=== PATIENT | female | born 2000 | race African-American/Black ===

== ENCOUNTER 2025-07-17 02:34 | Emergency (ER) | payer SELFPAY ==
[2025-07-17 03:00] LABS: Glucose, Urine (Dipstick) Normal (Negative); Leukocyte 100 (Negative); Protein, Urine (Dipstick) Negative (Neg-Trace); Specific Gravity, Urine 1.025 (1.005-1.030)
[2025-07-17 03:06] LABS: Pregnancy Test - Urine (BHCG) Negative (Negative); Pregu Control Background? CLEAR/WHITE (CLR/WHITE); Pregu Control Bar Appear? YES (CONTROL BAR)
[2025-07-17] MEDS ORDERED: Ketorolac Tromethamine 30 MG (1 mL) VIAL ONE (03:13)
[2025-07-17 03:38] LABS: Bacteria/HPF Rare-Few HPF (None Seen); CAUTI Indications for Culture Pelvic or flank pain; RBC/HPF 0-3 HPF (0-3); WBC/HPF 0-3 HPF (0-3)
[2025-07-17 03:39] LABS: Urine Culture Reflex No No
== END 2025-07-17 03:50 | disposition home or self-care (01) ==
LOC: CSHERS 02:34
DX: M62.830 Muscle spasm of back (principal)
CPT/HCPCS: 81001; 81025; 96372; 99284; J1885

== ENCOUNTER 2025-07-17 12:55 | Emergency (ER) | payer SELFPAY ==
[2025-07-17] MEDS ORDERED: Dexamethasone 10 MG/ML VIAL ONE (14:47)
[2025-07-17] MEDS ORDERED: Albuterol 2.5 MG (3 mL) NEB ONE ×2 (14:49→16:53)
== END 2025-07-17 19:20 | disposition home or self-care (01) ==
LOC: CSHERS 12:55
DX: J45.901 Unspecified asthma with (acute) exacerbation (principal)
CPT/HCPCS: 71045; 87428; J1100; J7611